=== PATIENT | female | born 1945 | race Caucasian/White ===

== ENCOUNTER 2020-08-31 22:47 | Emergency (ER) | payer MEDICARE, OTHER ==
[2020-09-01] MEDS ORDERED: PYRIDIUM200 MG PO (23:46)
== END 2020-09-01 02:30 | disposition left against medical advice (07) ==
LOC: ER1 22:47
DX: R51.9 Headache, unspecified (principal); R11.0 Nausea; R10.2 Pelvic and perineal pain; M79.10 Myalgia, unspecified site; Z53.21 Procedure and treatment not carried out due to patient leaving prior to being seen by health care provider

== ENCOUNTER 2020-09-01 21:28 | Emergency (ER) | payer MEDICARE, OTHER ==
[2020-09-01 22:06] LABS: HEMOGLOBIN 13.7 gm/dl (12.3-15.3); RED BLOOD COUNT 4.41 M/UL (4.00-5.10); WHITE BLOOD COUNT 7.9 K/UL (4.5-11.0)
[2020-09-01 22:19] LABS: BUN/CREATININE RATIO 15 (0-10)
[2020-09-01] MEDS ORDERED: PYRIDIUM200 MG PO (23:46)
== END 2020-09-02 00:30 | disposition home or self-care (01) ==
LOC: ER1 21:28
PROVIDERS: Emergency Medicine
DX: R10.2 Pelvic and perineal pain (principal); R30.0 Dysuria; R35.0 Frequency of micturition; R11.0 Nausea; Z87.442 Personal history of urinary calculi; Z87.440 Personal history of urinary (tract) infections
CPT/HCPCS: 36415; 80053; 81001; 83690; 85025; 87086; 96374; 96375; 96376; 99284; J2270; J2405; Q9967

== ENCOUNTER → 2021-02-11 | Outpatient (CLI) | payer MEDICARE ==
[~2021-02-11] MED LIST: PYRIDIUM200 MG PO
== END ==
LOC: KOH-I 14:41
DX: M79.672 Pain in left foot (principal); M79.671 Pain in right foot; M19.071 Primary osteoarthritis, right ankle and foot
CPT/HCPCS: 73630

== ENCOUNTER → 2021-06-12 | Outpatient (CLI) | payer MEDICARE | LOC: HEART CORB 09:43 | DX: R07.2 Precordial pain (principal); E78.5 Hyperlipidemia, unspecified; M19.90 Unspecified osteoarthritis, unspecified site; M81.0 Age-related osteoporosis without current pathological fracture; M06.9 Rheumatoid arthritis, unspecified; E03.9 Hypothyroidism, unspecified; F32.9 Major depressive disorder, single episode, unspecified; F41.9 Anxiety disorder, unspecified | CPT/HCPCS: 78452; A9502; J2785 ==